=== PATIENT | male | born 1965 | race African-American/Black ===

== ENCOUNTER 2021-01-23 13:47 | Emergency (ER) | payer SELFPAY ==
[2021-01-23] MEDS ORDERED: Ketorolac Tromethamine 30 MG/ML VIAL ONE (14:17)
== END 2021-01-23 15:20 | disposition home or self-care (01) ==
LOC: ERS 13:47
DX: M19.032 Primary osteoarthritis, left wrist (principal)
CPT/HCPCS: 96372; J1885